=== PATIENT | female | born 1985 | race Caucasian/White ===

== ENCOUNTER 2021-03-29 14:22 | Inpatient (IN) | payer BC ==
[~2021-03-29 14:22] MED LIST: Lidocaine 1.5% with EPINEPHrine 1:200,000 5 ML Amp ONE
[2021-03-29] MEDS ORDERED: Sodium Chloride 0.9% 10 ML Syringe FLUSH PRN (14:33)
[2021-03-29] MEDS ORDERED: Nalbuphine 10 MG/1 ML Vial IVPUSH PRN (14:33)
[2021-03-29] MEDS ORDERED: Lidocaine 1% 50 ML MDV INJECT ONE (14:33)
[2021-03-29] MEDS ORDERED: Oxytocin/Lactated Ringers 10 UNIT/1,000 ML BAG IV SCH ×2 (14:45)
[2021-03-29] MEDS ORDERED: Bupivacaine/fentaNYL/NS 100 ML Bag EPIDUR PRN (16:17)
[2021-03-29] MEDS ORDERED: diphenhydrAMINE 50 MG/ML SDV IVPUSH PRN (16:17)
[2021-03-29] MEDS ORDERED: ePHEDrine 50 MG/ML SDV IVPUSH PRN (16:17)
[2021-03-29] MEDS ORDERED: fentaNYL 100 MCG/2 ML SDV EPIDUR PRN (16:17)
[2021-03-29] MEDS: Lactated Ringers 1,000 ML IV SCH ×3 (17:38→22:14)
[2021-03-29] MEDS: Ondansetron 4 MG/2 ML SDV IVPUSH PRN ×2 (18:46→22:21)
[2021-03-29] MEDS ORDERED: Sodium Chloride 0.9% 10 ML Syringe FLUSH SCH (21:00)
[2021-03-29] MEDS ORDERED: Witch Hazel Medicated Pads 40/Jar TOP PRN (23:27)
[2021-03-29] MEDS ORDERED: Benzocaine/Menthol 20%-0.5% Spray 78 GM Cannister TOP PRN (23:27)
[2021-03-30] MEDS: Ibuprofen 600 MG Tab PO PRN ×4 (00:19→21:41)
[2021-03-30] MEDS ORDERED: Acetaminophen 325 MG Tab PO PRN (13:48)
[2021-03-31] MEDS: Ibuprofen 600 MG Tab PO PRN (06:48)
== END 2021-03-31 12:52 | disposition home or self-care (01) | DRG 560 ==
LOC: JD.OB 14:22 → OBSVTOIN 22:50 → JD.OB 22:50
PROVIDERS: ADMIT Obstetrics & Gynecology; ATTEND Obstetrics & Gynecology
PROC: 10E0XZZ Delivery of Products of Conception, External Approach (ICD-10-PCS; principal; 2021-03-29)
PROC: 10907ZC Drainage of Amniotic Fluid, Therapeutic from Products of Conception, Via Natural or Artificial Opening (ICD-10-PCS; 2021-03-29)
PROC: 3E0R3BZ Introduction of Anesthetic Agent into Spinal Canal, Percutaneous Approach (ICD-10-PCS; 2021-03-29)
PROC: 00HU33Z Insertion of Infusion Device into Spinal Canal, Percutaneous Approach (ICD-10-PCS; 2021-03-29)
DX: O34.211 Maternal care for low transverse scar from previous cesarean delivery (principal); Z3A.39 39 weeks gestation of pregnancy; Z37.0 Single live birth; O77.0 Labor and delivery complicated by meconium in amniotic fluid
CPT/HCPCS: 36415; 51702; 59025; 59409; 85025; 86592; 86850; 86870; 86900; 86901; A9270-GY; J2405; J2590; J3010; J7120